=== PATIENT | female | born 1960 | race Caucasian/White ===

== ENCOUNTER → 2018-01-28 | Outpatient (REF) | payer OTHER ==
[2018-01-28 18:58] LABS: APPEARANCE, URINE CLEAR (CLEAR); BACTERIA, URINE AUTO NEGATIVE (NEGATIVE); BILIRUBIN, URINE AUTO NEGATIVE (NEGATIVE); BLOOD, URINE BLOOD 1+ (NEGATIVE); COLOR, URINE YELLOW (YELLOW); GLUCOSE, URINE (UA) AUTO NEGATIVE (NEGATIVE); KETONE, URINE AUTO NEGATIVE (NEGATIVE); LEUKOCYTE ESTERASE, URINE AUTO NEGATIVE (NEGATIVE); NITRITE, URINE AUTO NEGATIVE (NEGATIVE); PROTEIN, URINE AUTO NEGATIVE (NEGATIVE); RBC, URINE AUTO 1 /HPF (0-3); SQUAMOUS EPITHELIAL CELL UR AU 0 /HPF (0-6); UROBILINOGEN, URINE AUTO 0.2 mg/dL (0.0-2.0); WBC, URINE AUTO 0 /HPF (0-3)
== END ==
LOC: M LAB REF 18:07
DX: N39.46 Mixed incontinence (principal)
CPT/HCPCS: 81001

== ENCOUNTER 2018-03-28 08:27 | Day surgery (SDC) | payer OTHER ==
[2018-03-28] MEDS: BUPIVACAINE HCL 0.25% 10 ML VIAL As Ordered ×2 (10:40→11:06)
[2018-03-28] MEDS ORDERED: PROPOFOL 200 MG/20 ML VIAL As Ordered (10:46)
[2018-03-28] MEDS ORDERED: fentaNYL 100 MCG/2 ML INJECTION (J3010) As Ordered (10:46)
[2018-03-28] MEDS ORDERED: METOCLOPRAMIDE INJ 10MG/2ML VIAL (J2765) As Ordered (10:46)
[2018-03-28] MEDS ORDERED: LIDOCAINE 2% INJ 100 MG/5 ML SDV (FOR ANES.) As Ordered (10:46)
[2018-03-28] MEDS ORDERED: KETOROLAC 60 MG/2 ML VIAL (J1885) As Ordered (10:46)
[2018-03-28] MEDS ORDERED: MIDAZOLAM INJ 2 MG/2 ML VIAL (J2250) As Ordered (10:46)
[2018-03-28] MEDS ORDERED: ONDANSETRON 4MG/2ML VIAL (J2405) As Ordered (10:46)
[2018-03-28] MEDS ORDERED: dexameTHASONE 4 MG/ML 1ML VIAL (J1100) As Ordered ×2 (10:53)
[2018-03-28] MEDS: ceFAZolin 2 GM/D5W 50 ML IV BAG (J0690 PER 500MG) As Ordered (11:12)
[2018-03-28] MEDS ORDERED: MEPERIDINE INJ 25 MG/ML VIAL (J2175) IV (12:00)
[2018-03-28] MEDS ORDERED: fentaNYL 100 MCG/2 ML INJECTION (J3010) IV (12:00)
[2018-03-28] MEDS ORDERED: ONDANSETRON 4MG/2ML VIAL (J2405) IV (12:00)
[2018-03-28] MEDS ORDERED: LR 1,000 ML IV ×2 (12:00)
[2018-03-28] MEDS ORDERED: KETOROLAC 30 MG/ML VIAL (J1885) IV (12:00)
[2018-03-28] MEDS ORDERED: METOCLOPRAMIDE INJ 10MG/2ML VIAL (J2765) IV (12:00)
[2018-03-28] MEDS ORDERED: PERCOCET 5MG/325MG TAB PO (12:00)
[2018-03-28] MEDS ORDERED: IBUPROFEN 600 MG TAB PO (12:00)
== END 2018-03-28 12:34 | disposition home or self-care (01) ==
LOC: M SDC 08:27
DX: N39.46 Mixed incontinence (principal); N36.42 Intrinsic sphincter deficiency (ISD); N32.89 Other specified disorders of bladder; Q62.5 Duplication of ureter; Z98.51 Tubal ligation status
CPT/HCPCS: 51715

== ENCOUNTER → 2020-12-29 | Outpatient (CLI) | payer OTHER | LOC: M LABSMTC 09:57 | PROVIDERS: ATTEND Anesthesiology | DX: Z01.812 Encounter for preprocedural laboratory examination (principal); Z20.822 Contact with and (suspected) exposure to COVID-19 ==

== ENCOUNTER → 2020-12-29 | Outpatient (CLI) | payer BC ==
--- NOTE | 2020-12-29 18:35 | ECGEPIP ---
[facility] Test Date: 2020-12-29 Pat Name: VARINDER WAKEFIELD Department: Room: - Gender: Female Rn Security: ivan : 1960 Requested By: MELVA Rodriguez Order Number: [id number] Reading MD: Sukhjinder Wilson Measurements Intervals [place] Rate: 55 P: 61 WV: 136 QRS: -10 QRSD: 110 T: 37 QT: 444 QTc: 424 Interpretive Statements Sinus bradycardia Incomplete right bundle branch block No prior tracing in the system Electronically Signed on 12-29-2020 18:34:57 EDT by Sukhjinder Wilson
== END ==
LOC: M EKG 10:49
PROVIDERS: ATTEND Anesthesiology
DX: Z01.812 Encounter for preprocedural laboratory examination (principal); R06.83 Snoring; R00.1 Bradycardia, unspecified; I45.10 Unspecified right bundle-branch block

== ENCOUNTER → 2021-01-03 | Day surgery (SDC) | payer BC ==
[~2021-01-03] VITALS: Ht 162.6 cm; Wt 73.8 kg
[~2021-01-03] MED LIST: LIDOCAINE 1% MDV 20ML VIAL SQ PRN; LR 1,000 ML IV ONE; ceFAZolin SOD 2 GM in IV 1 EA IV ONE
[2021-01-03 11:42] VITALS: BP 147/88
== END | disposition home or self-care (01) ==
LOC: M SDC 11:21
PROVIDERS: ATTEND Surgery
DX: K40.30 Unilateral inguinal hernia, with obstruction, without gangrene, not specified as recurrent (principal); Z53.8 Procedure and treatment not carried out for other reasons

== ENCOUNTER 2021-01-06 12:26 | Day surgery (SDC) | payer BC ==
[~2021-01-06] VITALS: Ht 162.6 cm; Wt 74.1 kg
[~2021-01-06 12:26] MED LIST changes: +ACETAMINOPHEN 1000MG 100ML IV BTL (OFIRMEV) (J0131 PER 10MG) As Ordered ONE; +KETOROLAC 60MG 2ML VIAL As Ordered ONE; +LIDOCAINE 2% 100MG/5ML SDV (FOR ANES.) As Ordered ONE; +MIDAZOLAM INJ 2MG/2ML VIAL (J2250 PER 1MG) As Ordered ONE; +ONDANSETRON 4MG/2ML VIAL As Ordered ONE; +ROCURONIUM BROMIDE 50 MG/5 ML VIAL As Ordered ONE; +SUGAMMADEX SODIUM 500 MG/5 ML VIAL (BRIDION) As Ordered ONE; +dexameTHASONE 4 MG/ML 1ML VIAL (J1100 PER 1MG) As Ordered ONE; +fentaNYL 100 MCG/2 ML INJECTION (J3010) As Ordered ONE; +propofoL 200 MG/20 ML VIAL As Ordered ONE
[2021-01-06] MEDS ORDERED: BUPIVACAINE/EPIN 0.25% 30 ML VIAL As Ordered ONE (13:25)
[2021-01-06] MEDS ORDERED: fentaNYL 100 MCG/2 ML INJECTION (J3010) As Ordered ONE (14:59)
[2021-01-06] MEDS ORDERED: LABETALOL 100MG/20ML VIAL As Ordered ONE (15:05)
[2021-01-06] MEDS ORDERED: oxyCODONE 5MG TAB PO PRN (16:20)
[2021-01-06] MEDS ORDERED: LR 1,000 ML IV SCH (16:20)
[2021-01-06] MEDS ORDERED: fentaNYL 100 MCG/2 ML INJECTION (J3010) IV PRN (16:20)
[2021-01-06] MEDS ORDERED: ONDANSETRON 4MG/2ML VIAL IV PRN (16:20)
[2021-01-06] MEDS ORDERED: NORCO, ANEXSIA 5/325MG TABLET (HYDROcodone/ACETAMINOPHEN) PO PRN (16:25)
[2021-01-06 17:55] VITALS: BP 168/88
--- NOTE | 2021-01-06 21:09 | RO ---
OPERATIVE NOTE PREOPERATIVE DIAGNOSIS: Incarcerated left inguinal hernia. POSTOPERATIVE DIAGNOSIS: Incarcerated left inguinal hernia. PROCEDURE: Robotic repair of incarcerated left inguinal hernia. SURGEON: Scar Sawant DO TEXTILE FINISHER: Kamilla Cantrell ANESTHESIA: General. ESTIMATED BLOOD LOSS: 5 ml COMPLICATIONS: None. INDICATION FOR PROCEDURE: The patient is a 60-year-old female who presents with a palpable lump and persistent pain in the left groin and found to have an incarcerated left inguinal hernia. Recommendation was to proceed with a robotic repair. Risks and benefits of the procedure not limited to but included bleeding, infection, hernia recurrence, hernia formation, damage to surrounding structures and need for further surgery were discussed in detail with the patient. Informed consent was obtained and procedure was planned. DESCRIPTION OF PROCEDURE: The patient was brought back to operating room 7. After sufficient sedation, the abdomen was sterilely prepped and draped. Next, time-out was done to confirm proper patient and proper procedure. Following that, 8 mm incision was made in the left upper quadrant. Veress needle inserted and the abdomen was insufflated with 15 mmHg. The Veress needle was then removed and then 8 mm Optiview port was used to gain access to the abdomen. Once the abdomen was entered, two more ports were placed, one just left of the midline supraumbilically and one in the right upper quadrant. Next, the robot was docked to the ports. From the console, the left lower quadrant was examined. There were obvious indirect and direct hernias identified from the peroneal surface. A curved incision was then made into the peritoneum. Preperitoneal space was entered. Indirect hernia was dissected free first revealing a large cord lipoma. This was all dissected free and the lipoma was brought inside of the peritoneum, but left attached to the abdomen. Next, medial to the inferior epigastric was a large incarcerated direct inguinal hernia With some steady pressure, I was able to eventually reduce this one completely as well. Once it was completely reduced, I continued dissection medially the pubic symphysis and then posteriorly. Once the dissection was complete, a 2-0 V-Loc was used to invert the hernia sac at the direct site and it was sutured to the pubis symphysis. Next, Bar 3mx large mesh was placed and preperitoneal space, sutured to the pubis symphysis with 2-0 Vicryl suture. The mesh was rather large for this opening, so I did end up having to cut about a distal 3rd of it off. Once the mesh was in place, the peritoneum was then closed over top of the mesh incorporating the hernia sac and the large lipoma within it using a 2-0 V-lock. Once that was completely, the needles were removed, the abdomen was desufflated and skin incisions were closed with 4-0 Vicryl subcuticular sutures. The abdomen was clean and dry and Steri-Strips, 4 x 4 and tape were applied. This ended the procedure.
== END 2021-01-06 17:55 | disposition home or self-care (01) ==
LOC: M SDC 12:26
PROVIDERS: ATTEND Surgery
DX: K40.30 Unilateral inguinal hernia, with obstruction, without gangrene, not specified as recurrent (principal)
CPT/HCPCS: 49650; C1781; J0131; J0690; J1100; J1885; J2250; J2405; J3010; S2900

== ENCOUNTER → 2025-04-02 | Outpatient (REF) | LOC: M CFLAB 14:39 | DX: N39.0 Urinary tract infection, site not specified (principal) ==